=== PATIENT | female | born 1965 | race Caucasian/White ===

== ENCOUNTER 2017-05-23 22:00 | Inpatient (IN) | payer MEDICARE, MEDICAID ==
[~2017-05-23] VITALS: Ht 157.5 cm; Wt 66.0 kg
[2017-05-23] MEDS ORDERED: LEVO88TA4 PO (22:13)
[2017-05-23] MEDS ORDERED: METH500T7 PO (22:13)
[2017-05-23] MEDS ORDERED: QUET25TA PO (22:13)
[2017-05-23] MEDS ORDERED: FLUO10CA7 PO (22:13)
[2017-05-23] MEDS ORDERED: OXYC5CAP2 PO (22:13)
[2017-05-23] MEDS ORDERED: OMEP10CA4 PO (22:13)
[2017-05-23] MEDS ORDERED: TOPI15CA PO (22:13)
[2017-05-23] MEDS ORDERED: DIAZ2TAB3 PO (22:13)
[2017-05-23] MEDS ORDERED: ONDANSETRON 2MG/ML, 2ML IVPush ONE (22:30)
[2017-05-23] MEDS ORDERED: SODIUM CHLORIDE 0.9% 1,000ML IVBOLUS ONE (22:30)
[2017-05-23] MEDS ORDERED: ONDANSETRON 2MG/ML, 2ML ONE (22:34)
[2017-05-23] MEDS ORDERED: NALOXONE 0.4 MG/ML, 1ML ONE ×3 (22:34→23:34)
[2017-05-23 22:42] LABS: HEMATOCRIT 33.2 % (34.6-47.8); HEMOGLOBIN 10.9 g/dL (11.7-16.4)
[2017-05-23 22:56] LABS: ASPARTATE AMINO TRANSFERASE 15 U/L (15-37); BLOOD UREA NITROGEN 16 mg/dL (7-18)
[2017-05-23 23:06] LABS: ACETAMINOPHEN 17 mcg/mL (10-30)
[2017-05-23] MEDS: NALOXONE 0.4 MG/ML, 1ML IVPush PRN ×2 (23:20→23:47)
[2017-05-23 23:31] LABS: DAU SCREEN DISCLAIMER
[2017-05-24] MEDS ORDERED: NALOXONE 4 MG in SODIUM CHLORIDE 0.9% 1,000 ML IV SCH ×2 (00:30→01:30)
[2017-05-24] MEDS ORDERED: SODIUM CHLORIDE 0.9% 1,000ML IVBOLUS ONE (01:00)
[2017-05-24] MEDS ORDERED: ONDANSETRON 2MG/ML, 2ML IVPush PRN (01:30)
[2017-05-24] MEDS: NS + 20MEQ KCL 1,000 ML IV SCH ×2 (02:54→09:16)
[2017-05-24] MEDS: ENOXAPARIN 40 MG/0.4 ML SQ SCH (02:55)
[2017-05-24 04:00] VITALS: BP 101/70
[2017-05-24 04:46] LABS: HEMATOCRIT 33.2 % (34.6-47.8); HEMOGLOBIN 10.9 g/dL (11.7-16.4); WHITE BLOOD COUNT 4.1 x10^3/uL (3.4-10)
[2017-05-24 04:58] LABS: ASPARTATE AMINO TRANSFERASE 10 U/L (15-37); BLOOD UREA NITROGEN 13 mg/dL (7-18)
[2017-05-24] MEDS ORDERED: LEVOTHYROXINE 100 MCG INJ IVPush SCH (09:00)
[2017-05-24] MEDS ORDERED: NALOXONE 0.4 MG/ML, 1ML IVPush PRN (11:30)
[2017-05-24 20:00] VITALS: BP 122/74
[2017-05-24 21:15] VITALS: BP 127/83
[2017-05-25 02:44] VITALS: BP 118/76
[2017-05-25] MEDS: ENOXAPARIN 40 MG/0.4 ML SQ SCH (05:31)
[2017-05-25] MEDS ORDERED: LEVOTHYROXINE 88 MCG TABLET PO SCH (06:00)
[2017-05-25 06:58] VITALS: BP 137/89
[2017-05-25 12:51] VITALS: BP 132/85
[2017-05-25] MEDS ORDERED: NALO0.4D2 IM (14:39)
[2017-05-25] MEDS ORDERED: PREGABALIN 150 MG CAPSULE PO ONE (15:00)
== END 2017-05-25 15:45 | disposition home or self-care (01) | DRG 917 ==
LOC: ED 23:59 → OBSVTOIN 05-24 00:13 → EDIP 05-24 00:13 → CCU 05-24 02:11 → 4EST 05-24 21:08
PROVIDERS: ADMIT Internal Medicine; ATTEND Internal Medicine
DX: T40.601A Poisoning by unspecified narcotics, accidental (unintentional), initial encounter (principal); J96.01 Acute respiratory failure with hypoxia; G92 Toxic encephalopathy; E87.6 Hypokalemia; E03.9 Hypothyroidism, unspecified; D64.9 Anemia, unspecified; F31.9 Bipolar disorder, unspecified; G62.9 Polyneuropathy, unspecified; R33.9 Retention of urine, unspecified; Z86.73 Personal history of transient ischemic attack (TIA), and cerebral infarction without residual deficits; Z99.3 Dependence on wheelchair; Y92.89 Other specified places as the place of occurrence of the external cause
CPT/HCPCS: 36415; 70450; 80053; 80307; 80329; 82962; 83735; 84443; 84703; 85025; 87081; 87147; 96361; 96374; 96375; J1650; J2310; J2405; J3480; G0480; J7030

== ENCOUNTER 2017-05-28 14:50 | Inpatient (IN) | payer MEDICARE, MEDICAID ==
[~2017-05-28] VITALS: Ht 160 cm; Wt 63.1 kg
[~2017-05-28 14:50] MED LIST: DIAZ2TAB3 PO; FLUO10CA7 PO; LEVO88TA4 PO; METH500T7 PO; NALO0.4D2 IM; OMEP10CA4 PO; OXYC5CAP2 PO; QUET25TA PO; TOPI15CA PO
[2017-05-28] MEDS ORDERED: SODIUM CHLORIDE 0.9% 1,000 ML IV ONE (15:03)
[2017-05-28] MEDS ORDERED: NALOXONE 0.4 MG/ML, 1ML ONE (15:11)
[2017-05-28] MEDS ORDERED: NALOXONE 0.4 MG/ML, 1ML IVPush ONE (15:30)
[2017-05-28] MEDS ORDERED: SODIUM CHLORIDE FLUSH 10ML SYR IVF ONE (15:30)
[2017-05-28] MEDS ORDERED: SODIUM CHLORIDE 0.9% 1,000ML IVBOLUS ONE (15:30)
[2017-05-28 15:50] LABS: BLOOD UREA NITROGEN 17 mg/dL (7-18); HEMATOCRIT 32.9 % (34.6-47.8); HEMOGLOBIN 10.9 g/dL (11.7-16.4); WHITE BLOOD COUNT 9.1 x10^3/uL (3.4-10)
[2017-05-28 15:55] LABS: ACETAMINOPHEN 18 mcg/mL (10-30); ASPARTATE AMINO TRANSFERASE 118 U/L (15-37)
[2017-05-28] MEDS ORDERED: NALOXONE 1 MG/ML, 2ML IVPush ONE (16:00)
[2017-05-28] MEDS ORDERED: NALOXONE 1 MG/ML, 2ML ONE (16:16)
[2017-05-28 16:34] LABS: DAU SCREEN DISCLAIMER
[2017-05-28 16:38] LABS: PATH.CAST-FLAG NOT PRESENT; SPERM-FLAG NOT PRESENT; SRC-FLAG NOT PRESENT; XTAL-FLAG NOT PRESENT; YLC-FLAG NOT PRESENT
[2017-05-28] MEDS ORDERED: CEFTRIAXONE PMX 1GM/50ML 50 ML IV ONE (17:00)
[2017-05-28] MEDS ORDERED: CEFTRIAXONE PMX 1GM/50ML 50 ML ONE (17:19)
[2017-05-28] MEDS ORDERED: MORP-52 PO (17:38)
[2017-05-28] MEDS ORDERED: POTASSIUM CHLORIDE 40 MEQ in SODIUM CHLORIDE 0.9% 500 ML IV ONE (18:00)
[2017-05-28 19:29] VITALS: BP 121/79
[2017-05-28] MEDS: HEPARIN 5,000 UNITS/ML, 1ML SQ SCH (23:42)
[2017-05-29 00:10] VITALS: BP 121/79
[2017-05-29 02:30] VITALS: BP 104/69
[2017-05-29 04:39] LABS: BLOOD UREA NITROGEN 14 mg/dL (7-18)
[2017-05-29 04:50] LABS: HEMATOCRIT 31.5 % (34.6-47.8); HEMOGLOBIN 10.3 g/dL (11.7-16.4); WHITE BLOOD COUNT 5.7 x10^3/uL (3.4-10)
[2017-05-29] MEDS ORDERED: CEFTRIAXONE PMX 2GM/50ML 50 ML IV SCH (05:00)
[2017-05-29 07:51] VITALS: BP 117/79
[2017-05-29] MEDS: LEVOTHYROXINE 88 MCG TABLET PO SCH (09:08)
[2017-05-29] MEDS: HEPARIN 5,000 UNITS/ML, 1ML SQ SCH ×3 (09:08→22:16)
[2017-05-29] MEDS: CEFTRIAXONE PMX 1GM/50ML 50 ML IV SCH (10:39)
[2017-05-29] MEDS: DEXTROSE 5% 1,000 ML IV SCH ×3 (10:39→23:18)
[2017-05-29] MEDS: POTASSIUM CHLORIDE 20 MEQ TAB.ER.PRT PO SCH ×2 (10:40→16:53)
[2017-05-29 12:38] VITALS: BP 114/74
[2017-05-29 20:00] VITALS: BP 131/88
[2017-05-29] MEDS: PREGABALIN 150 MG CAPSULE PO SCH (22:15)
[2017-05-30 02:00] VITALS: BP 118/82
[2017-05-30 06:02] LABS: ASPARTATE AMINO TRANSFERASE 53 U/L (15-37); BLOOD UREA NITROGEN 10 mg/dL (7-18)
[2017-05-30] MEDS: DEXTROSE 5% 1,000 ML IV SCH ×3 (06:03→20:56)
[2017-05-30] MEDS: HEPARIN 5,000 UNITS/ML, 1ML SQ SCH ×2 (06:13→15:29)
[2017-05-30 06:42] VITALS: BP 125/85
[2017-05-30] MEDS: PREGABALIN 150 MG CAPSULE PO SCH (08:46)
[2017-05-30] MEDS: LEVOTHYROXINE 88 MCG TABLET PO SCH (08:46)
[2017-05-30] MEDS ORDERED: TOPIRAMATE 15 MG PO SCH (09:00)
[2017-05-30] MEDS ORDERED: [UNRECOGNIZED DRUG - REMARK] MC SCH (09:17)
[2017-05-30] MEDS: FLUOXETINE 10 MG CAP PO SCH (10:53)
[2017-05-30] MEDS: CEFTRIAXONE PMX 1GM/50ML 50 ML IV SCH (10:53)
[2017-05-30 12:42] VITALS: BP 120/77
[2017-05-30 20:00] VITALS: BP 130/84
[2017-05-31] MEDS: HEPARIN 5,000 UNITS/ML, 1ML SQ SCH ×2 (00:40→07:45)
[2017-05-31 02:00] VITALS: BP 106/72
[2017-05-31] MEDS: LEVOTHYROXINE 88 MCG TABLET PO SCH (07:45)
[2017-05-31] MEDS: FLUOXETINE 10 MG CAP PO SCH (07:45)
[2017-05-31] MEDS: PREGABALIN 150 MG CAPSULE PO SCH (07:45)
[2017-05-31 08:06] VITALS: BP 120/82
[2017-05-31] MEDS ORDERED: TOPIRAMATE 25 MG TABLET PO SCH (09:00)
[2017-05-31] MEDS ORDERED: MORP30TA3 PO (09:39)
[2017-05-31] MEDS ORDERED: IBUP-1221 PO (09:46)
[2017-05-31 13:25] VITALS: BP 120/80
== END 2017-05-31 15:43 | disposition home or self-care (01) | DRG 917 ==
LOC: ED 17:13 → EDIP 17:18 → ED 17:30 → 4EST 18:42
PROVIDERS: ATTEND Hospitalist
PROC: 0T9B70Z Drainage of Bladder with Drainage Device, Via Natural or Artificial Opening (ICD-10-PCS; principal; 2017-05-28)
DX: T40.601A Poisoning by unspecified narcotics, accidental (unintentional), initial encounter (principal); G92 Toxic encephalopathy; E43 Unspecified severe protein-calorie malnutrition; L89.312 Pressure ulcer of right buttock, stage 2; E87.0 Hyperosmolality and hypernatremia; E86.0 Dehydration; N39.0 Urinary tract infection, site not specified; Z88.6 Allergy status to analgesic agent; Z88.8 Allergy status to other drugs, medicaments and biological substances; Z68.24 Body mass index [BMI] 24.0-24.9, adult; B96.20 Unspecified Escherichia coli [E. coli] as the cause of diseases classified elsewhere; D63.8 Anemia in other chronic diseases classified elsewhere; E03.9 Hypothyroidism, unspecified; E87.6 Hypokalemia; F31.9 Bipolar disorder, unspecified; G89.29 Other chronic pain; Z79.899 Other long term (current) drug therapy; Z87.820 Personal history of traumatic brain injury; Z99.3 Dependence on wheelchair
CPT/HCPCS: 36415; 80048; 80053; 80307; 80329; 81001; 83735; 84100; 85025; 87077; 87086; 87186; 93005; 93970; 96361; 96365; 96368; 96375; 96376; J0696; J1644; J2310; J3480; J7070; G0480; J7030; J7040

== ENCOUNTER 2018-02-18 04:45 | Emergency (ER) | payer MEDICARE, MEDICAID ==
[~2018-02-18] VITALS: Ht 152.4 cm; Wt 80.0 kg
[~2018-02-18 04:45] MED LIST changes: +ALPR-475 PO; +BACL20TA PO; +FUROSEMIDE PO; +IBUP-1221 PO; +IBUP-1222 PO; +METH750T2 PO; +MORP-52 PO; +MORP30TA3 PO; +OMEPRAZOLE PO; +OXYC-302 PO; +POTASSIUM PO; +QUET200T4 PO
[2018-02-18] MEDS ORDERED: OXYcodone/APAP 5/325MG TABLET ONE (05:28)
[2018-02-18] MEDS ORDERED: OXYcodone/APAP 5/325MG TABLET PO ONE (05:30)
[2018-02-18 08:14] VITALS: BP 123/76
== END 2018-02-18 09:10 | disposition home or self-care (01) ==
LOC: ED 05:52
DX: S92.514A Nondisplaced fracture of proximal phalanx of right lesser toe(s), initial encounter for closed fracture (principal); S93.402A Sprain of unspecified ligament of left ankle, initial encounter; S00.12XA Contusion of left eyelid and periocular area, initial encounter; E87.6 Hypokalemia; Z86.73 Personal history of transient ischemic attack (TIA), and cerebral infarction without residual deficits; W01.0XXA Fall on same level from slipping, tripping and stumbling without subsequent striking against object, initial encounter; Y93.89 Activity, other specified; Y92.89 Other specified places as the place of occurrence of the external cause; Y99.8 Other external cause status
CPT/HCPCS: 29515; 70486; 99284

== ENCOUNTER → 2018-05-30 | Outpatient (CLI) | payer MEDICARE, MEDICAID ==
[~2018-05-30] MED LIST changes: +FLUO40CA9 PO; +HYDR-3342 PO; +METO25TA35 PO; +OMEP-110 PO
[2018-05-30 08:13] LABS: ALBUMIN 4.3 g/dL (3.4-5.0); ANION GAP 11 mmol/L (5-15); CALCIUM 9.1 mg/dL (8.5-10.1); CHLORIDE 106 mmol/L (98-107)
[2018-05-30 08:22] LABS: ALANINE AMINOTRANSFERASE 39 U/L (12-78); ALKALINE PHOSPHATASE 141 U/L (45-117); BILIRUBIN,TOTAL 0.3 mg/dL (0.2-1.0); CHOL/HDL RATIO 2.1; CHOLESTEROL, TOTAL 214 mg/dL (140-239); CREATININE 1.35 mg/dL (0.55-1.02); FREE T4 (FREE THYROXINE) 0.86 ng/dL (0.76-1.46); HDL CHOL % 48 % (28-40); HDL CHOLESTEROL (DIRECT) 103 mg/dL (40-60); LDL CHOLESTEROL,CALCULATED 81 mg/dL (54-169); LDL/HDL RATIO 0.8 (0.5-3.0); THYROID STIMULATING HORMONE 0.897 mIU/L (0.358-3.740); TOTAL PROTEIN 8.5 g/dL (6.4-8.2); TRIGLYCERIDES 151 mg/dL (50-200); VLDL CHOLESTEROL 30 mg/dL (0-25)
[2018-05-30 08:38] LABS: MEAN PLATELET VOLUME 12.8 fL (7.4-10.4); PLATELET COUNT 281 x10^3/uL (130-400)
[2018-05-30 08:40] LABS: BASOPHILS # (AUTO) 0.02 x10^3/uL (0-0.1); BASOPHILS % (AUTO) 0 % (0-1); EOSINOPHILS # (AUTO) 0.17 x10^3/uL (0-0.4); EOSINOPHILS % (AUTO) 3 % (1-7); LYMPHOCYTES # (AUTO) 1.39 x10^3/uL (1-3.4); LYMPHOCYTES % (AUTO) 25 % (22-44); MD SCAN; MEAN CORPUSCULAR HEMOGLOBIN 30.6 pg (27.0-34.8); MEAN CORPUSCULAR HGB CONC 33.6 g/dL (32.4-35.8); MEAN CORPUSCULAR VOLUME 91.2 fL (80-100); MONOCYTES # (AUTO) 0.51 x10^3/uL (0.2-0.8); MONOCYTES % (AUTO) 9 % (2-9); NEUTROPHILS # (AUTO) 3.57 x10^3/uL (1.8-6.8); NEUTROPHILS % (AUTO) 63 % (42-75); RED BLOOD COUNT 4.46 x10^6/uL (3.82-5.3); RED CELL DISTRIBUTION WIDTH 16.5 % (9.6-15.2)
== END | disposition home or self-care (01) ==
LOC: CVU 07:19
PROVIDERS: ATTEND Internal Medicine
DX: E11.9 Type 2 diabetes mellitus without complications (principal); R20.9 Unspecified disturbances of skin sensation; E55.9 Vitamin D deficiency, unspecified; E03.9 Hypothyroidism, unspecified; K21.9 Gastro-esophageal reflux disease without esophagitis; R60.9 Edema, unspecified; G82.20 Paraplegia, unspecified; I25.2 Old myocardial infarction; I73.9 Peripheral vascular disease, unspecified; Z87.828 Personal history of other (healed) physical injury and trauma; Z86.73 Personal history of transient ischemic attack (TIA), and cerebral infarction without residual deficits
CPT/HCPCS: 36415; 80053; 80061; 82306; 84439; 84443; 84481; 85025; 86376; 93922; 93925

== ENCOUNTER 2018-06-16 01:25 | Emergency (ER) | payer MEDICARE, MEDICAID ==
[~2018-06-16] VITALS: Ht 152.4 cm; Wt 70.0 kg
[~2018-06-16 01:25] MED LIST changes: -FLUO40CA9 PO; -HYDR-3342 PO; -METO25TA35 PO; -OMEP-110 PO
[2018-06-16] MEDS ORDERED: HYDR-3342 PO (01:46)
[2018-06-16] MEDS ORDERED: METO25TA35 PO (01:46)
[2018-06-16] MEDS ORDERED: OMEP-110 PO (01:46)
[2018-06-16] MEDS ORDERED: FLUO40CA9 PO (01:46)
[2018-06-16 02:59] LABS: ALBUMIN 3.5 g/dL (3.4-5.0); ANION GAP 8 mmol/L (5-15); CALCIUM 8.7 mg/dL (8.5-10.1); CHLORIDE 105 mmol/L (98-107)
[2018-06-16 03:02] LABS: ALANINE AMINOTRANSFERASE 32 U/L (12-78); ALKALINE PHOSPHATASE 142 U/L (45-117); BILIRUBIN,TOTAL 0.3 mg/dL (0.2-1.0); TOTAL PROTEIN 7.5 g/dL (6.4-8.2)
[2018-06-16 03:04] LABS: BASOPHILS # (AUTO) 0.02 x10^3/uL (0-0.1); BASOPHILS % (AUTO) 0 % (0-1); EOSINOPHILS # (AUTO) 0.24 x10^3/uL (0-0.4); EOSINOPHILS % (AUTO) 4 % (1-7); LYMPHOCYTES # (AUTO) 1.51 x10^3/uL (1-3.4); LYMPHOCYTES % (AUTO) 25 % (22-44); MD SCAN; MEAN CORPUSCULAR HEMOGLOBIN 31.5 pg (27.0-34.8); MEAN CORPUSCULAR HGB CONC 34.3 g/dL (32.4-35.8); MEAN CORPUSCULAR VOLUME 91.9 fL (80-100); MEAN PLATELET VOLUME 11.8 fL (7.4-10.4); MONOCYTES # (AUTO) 0.53 x10^3/uL (0.2-0.8); MONOCYTES % (AUTO) 9 % (2-9); NEUTROPHILS # (AUTO) 3.64 x10^3/uL (1.8-6.8); NEUTROPHILS % (AUTO) 61 % (42-75); PLATELET COUNT 219 x10^3/uL (130-400); RED BLOOD COUNT 4.18 x10^6/uL (3.82-5.3); RED CELL DISTRIBUTION WIDTH 16.5 % (9.6-15.2)
[2018-06-16] MEDS ORDERED: POTASSIUM CHLORIDE 20 MEQ TAB.ER.PRT PO ONE (04:00)
[2018-06-16] MEDS ORDERED: CEFTRIAXONE 1,000 MG in SODIUM CHLORIDE 0.9% 50 ML IV ONE (04:00)
[2018-06-16] MEDS ORDERED: MORPHINE SULFATE 4 MG/ML, 1ML IVPush PRN (04:00)
[2018-06-16] MEDS ORDERED: CEFTRIAXONE PMX 1GM/50ML 0 ML ONE (04:06)
[2018-06-16] MEDS ORDERED: POTASSIUM CHLORIDE 20 MEQ TAB.ER.PRT ONE ×2 (04:06→04:14)
[2018-06-16] MEDS ORDERED: CEFTRIAXONE PMX 1GM/50ML 50 ML ONE ×2 (04:08→04:15)
[2018-06-16] MEDS ORDERED: MORPHINE SULFATE 4 MG/ML, 1ML ONE (04:15)
[2018-06-16 04:57] VITALS: BP 131/78
== END 2018-06-16 05:00 | disposition home or self-care (01) ==
LOC: ED 04:54
DX: L03.116 Cellulitis of left lower limb (principal); F31.9 Bipolar disorder, unspecified; Z86.73 Personal history of transient ischemic attack (TIA), and cerebral infarction without residual deficits
CPT/HCPCS: 36415; 73630; 80053; 85025; 93971; 96365; 96375; 99285; J0696

== ENCOUNTER → 2018-06-19 | Outpatient (CLI) | payer MEDICARE, MEDICAID ==
[~2018-06-19] MED LIST changes: +FLUO40CA9 PO; +HYDR-3342 PO; +METO25TA35 PO; +OMEP-110 PO
[2018-06-19 15:44] LABS: ALANINE AMINOTRANSFERASE 23 U/L (12-78); ALBUMIN 3.7 g/dL (3.4-5.0); ANION GAP 12 mmol/L (5-15); CALCIUM 8.2 mg/dL (8.5-10.1); CHLORIDE 108 mmol/L (98-107); CREATININE 1.37 mg/dL (0.55-1.02); IRON LEVEL 49 mcg/dL (50-170)
[2018-06-19 15:46] LABS: % IRON SATURATION 13 % (20-55); ALKALINE PHOSPHATASE 111 U/L (45-117); BILIRUBIN,TOTAL 0.2 mg/dL (0.2-1.0); TOTAL IRON BINDING CAPACITY 374 mcg/dL (250-450); TRANSFERRIN 329 mg/dL (200-360)
== END | disposition home or self-care (01) ==
LOC: LAB 15:09
PROVIDERS: ATTEND Physician Assistant
DX: Z00.01 Encounter for general adult medical examination with abnormal findings (principal); Z13.220 Encounter for screening for lipoid disorders; Z12.11 Encounter for screening for malignant neoplasm of colon; Z12.4 Encounter for screening for malignant neoplasm of cervix; Z12.31 Encounter for screening mammogram for malignant neoplasm of breast; E78.5 Hyperlipidemia, unspecified; E03.9 Hypothyroidism, unspecified; F32.9 Major depressive disorder, single episode, unspecified; I21.9 Acute myocardial infarction, unspecified; I63.8 Other cerebral infarction; K21.9 Gastro-esophageal reflux disease without esophagitis; B18.2 Chronic viral hepatitis C; D64.9 Anemia, unspecified; E55.9 Vitamin D deficiency, unspecified; S34.109D Unspecified injury to unspecified level of lumbar spinal cord, subsequent encounter; E87.6 Hypokalemia; R73.01 Impaired fasting glucose; R79.9 Abnormal finding of blood chemistry, unspecified; Z95.0 Presence of cardiac pacemaker
CPT/HCPCS: 36415; 80053; 80074; 82105; 82390; 82728; 83540; 83550; 84466

== ENCOUNTER 2018-06-24 20:05 | Inpatient (IN) | payer MEDICARE, MEDICAID ==
[~2018-06-24] VITALS: Ht 152.4 cm; Wt 76.5 kg
[2018-06-24] MEDS ORDERED: MORPHINE SULFATE 4 MG/ML, 1ML ONE ×2 (21:00→23:05)
[2018-06-24] MEDS ORDERED: SODIUM CHLORIDE FLUSH 10ML SYR IVF ONE (21:00)
[2018-06-24] MEDS: MORPHINE SULFATE 4 MG/ML, 1ML IVPush PRN ×2 (21:17→23:08)
[2018-06-24 21:18] LABS: ALANINE AMINOTRANSFERASE 22 U/L (12-78); ALBUMIN 3.9 g/dL (3.4-5.0); ANION GAP 16 mmol/L (5-15); CALCIUM 8.5 mg/dL (8.5-10.1); CHLORIDE 104 mmol/L (98-107); CREATININE 1.98 mg/dL (0.55-1.02)
[2018-06-24 21:20] LABS: ALKALINE PHOSPHATASE 121 U/L (45-117); BILIRUBIN,TOTAL 0.3 mg/dL (0.2-1.0); TOTAL PROTEIN 7.8 g/dL (6.4-8.2)
[2018-06-24 21:27] LABS: MEAN CORPUSCULAR HEMOGLOBIN 31.3 pg (27.0-34.8); MEAN CORPUSCULAR VOLUME 92.1 fL (80-100); RED BLOOD COUNT 4.22 x10^6/uL (3.82-5.3); RED CELL DISTRIBUTION WIDTH 16.1 % (9.6-15.2)
[2018-06-24 21:28] LABS: MD YES; MEAN PLATELET VOLUME 12.5 fL (7.4-10.4); PLATELET COUNT 245 x10^3/uL (130-400)
[2018-06-24 21:31] LABS: ANISOCYTOSIS 1+; EOS#(MANUAL) 0.05 x10^3/uL (0.0-0.4); EOS% (MANUAL) 1 % (1-7); LYMPH#(MANUAL) 1.72 x10^3/uL (1-3.4); LYMPHS% (MANUAL) 35 % (22-44); MONOS#(MANUAL) 0.44 x10^3/uL (0.3-2.7); MONOS% (MANUAL) 9 % (2-9); SEGS% (MANUAL) 55 % (42-75)
[2018-06-24 21:32] LABS: <PLATELET ESTIMATE> ADEQUATE; LARGE PLATELETS 1+
[2018-06-24] MEDS ORDERED: CLINDAMYCIN PMX 600MG/50ML 50 ML IV ONE (22:30)
[2018-06-24] MEDS ORDERED: CLINDAMYCIN PMX 600MG/50ML 50 ML ONE (22:42)
[2018-06-24] MEDS ORDERED: SODIUM CHLORIDE 0.9% 1,000 ML IV ONE (23:24)
[2018-06-24] MEDS ORDERED: MORPHINE SULFATE 4 MG/ML, 1ML IVPush PRN (23:30)
[2018-06-24] MEDS ORDERED: CEPH-376 PO (23:39)
[2018-06-25] MEDS ORDERED: ONDANSETRON ODT 4 MG PO PRN (00:30)
[2018-06-25] MEDS ORDERED: ENOXAPARIN 40 MG/0.4 ML SQ SCH (00:30)
[2018-06-25] MEDS ORDERED: BISACODYL 10 MG SUPP PR PRN (00:30)
[2018-06-25] MEDS ORDERED: D5%-0.45NACL+KCL 20MEQ 1,000 ML IV SCH (00:30)
[2018-06-25] MEDS ORDERED: hydrALAzine 20 MG/ML, 1ML IVPush PRN (00:30)
[2018-06-25 00:35] VITALS: BP 127/79
[2018-06-25 01:17] VITALS: BP 127/79
[2018-06-25] MEDS: TEMAZEPAM 15 MG CAPSULE PO PRN ×2 (01:53→23:09)
[2018-06-25 02:00] VITALS: BP 127/79
[2018-06-25] MEDS: morphine SULFATE 10 MG/ML, 1ML IVPush PRN ×5 (02:54→21:23)
[2018-06-25] MEDS: LACTOBACILLUS CHEW TABLET PO SCH ×4 (06:45→20:53)
[2018-06-25 06:51] VITALS: BP 121/86
[2018-06-25] MEDS ORDERED: CLINDAMYCIN PMX 600MG/50ML 50 ML IV SCH (07:00)
[2018-06-25] MEDS: FLUOXETINE HCL 20 MG CAPSULE PO SCH (08:11)
[2018-06-25] MEDS: OMEPRAZOLE 20 MG CAPSULE.DR PO SCH (08:11)
[2018-06-25] MEDS: METHOCARBAMOL 750 MG TABLET PO SCH (08:11)
[2018-06-25] MEDS: LEVOTHYROXINE 75 MCG TABLET PO SCH (08:12)
[2018-06-25] MEDS: METOPROLOL SUCCINATE 25 MG TAB.ER.24H PO SCH (08:12)
[2018-06-25] MEDS: CEFTRIAXONE 2 GM in SODIUM CHLORIDE 0.9% 50 ML IV SCH (09:59)
[2018-06-25] MEDS: SODIUM CHLORIDE 0.9% 1,000 ML IV SCH ×2 (09:59→18:03)
[2018-06-25 10:08] LABS: ALBUMIN 4.1 g/dL (3.4-5.0); ANION GAP 14 mmol/L (5-15); CALCIUM 8.8 mg/dL (8.5-10.1); CHLORIDE 105 mmol/L (98-107); CREATININE 1.61 mg/dL (0.55-1.02)
[2018-06-25 12:15] VITALS: BP 115/82
[2018-06-25 15:31] LABS: CLOSTRIDIUM DIFFICILE ANTIGEN NEGATIVE; CLOSTRIDIUM DIFFICILE TOXIN NEGATIVE (Negative)
[2018-06-25] MEDS ORDERED: LOPERAMIDE 2 MG CAPSULE PO ONE (16:00)
[2018-06-25] MEDS: LOPERAMIDE 2 MG CAPSULE PO PRN (20:53)
[2018-06-25 21:30] VITALS: BP 103/62
[2018-06-26] MEDS ORDERED: ENOXAPARIN 30 MG/0.3 ML SQ SCH (01:00)
[2018-06-26] MEDS: morphine SULFATE 10 MG/ML, 1ML IVPush PRN ×4 (01:59→20:24)
[2018-06-26 02:02] VITALS: BP 101/56
[2018-06-26] MEDS: LACTOBACILLUS CHEW TABLET PO SCH ×4 (05:23→20:19)
[2018-06-26] MEDS: SODIUM CHLORIDE 0.9% 1,000 ML IV SCH (05:23)
[2018-06-26 06:06] LABS: ANION GAP 13 mmol/L (5-15); CALCIUM 8.2 mg/dL (8.5-10.1); CHLORIDE 112 mmol/L (98-107)
[2018-06-26 06:07] LABS: CREATININE 0.85 mg/dL (0.55-1.02)
[2018-06-26 06:21] LABS: MEAN CORPUSCULAR HGB CONC 33.8 g/dL (32.4-35.8); MEAN CORPUSCULAR VOLUME 91.8 fL (80-100); RED BLOOD COUNT 3.83 x10^6/uL (3.82-5.3); RED CELL DISTRIBUTION WIDTH 15.3 % (9.6-15.2)
[2018-06-26 06:48] VITALS: BP 96/62
[2018-06-26 06:54] LABS: PLATELET COUNT 166 x10^3/uL (130-400)
[2018-06-26 06:55] LABS: BASOPHILS % (AUTO) 0 % (0-1); EOSINOPHILS # (AUTO) 0.03 x10^3/uL (0-0.4); EOSINOPHILS % (AUTO) 1 % (1-7); LYMPHOCYTES # (AUTO) 0.45 x10^3/uL (1-3.4); LYMPHOCYTES % (AUTO) 11 % (22-44); MD SCAN; MONOCYTES # (AUTO) 0.34 x10^3/uL (0.2-0.8); MONOCYTES % (AUTO) 9 % (2-9); NEUTROPHILS # (AUTO) 3.19 x10^3/uL (1.8-6.8); NEUTROPHILS % (AUTO) 79 % (42-75)
[2018-06-26] MEDS: LOPERAMIDE 2 MG CAPSULE PO PRN ×2 (07:59→19:27)
[2018-06-26] MEDS: OMEPRAZOLE 20 MG CAPSULE.DR PO SCH (09:50)
[2018-06-26] MEDS: FLUOXETINE HCL 20 MG CAPSULE PO SCH (09:55)
[2018-06-26] MEDS: METOPROLOL SUCCINATE 25 MG TAB.ER.24H PO SCH (09:59)
[2018-06-26] MEDS: CEFTRIAXONE 2 GM in SODIUM CHLORIDE 0.9% 50 ML IV SCH (10:00)
[2018-06-26] MEDS: METHOCARBAMOL 750 MG TABLET PO SCH (10:00)
[2018-06-26] MEDS: LEVOTHYROXINE 75 MCG TABLET PO SCH (10:00)
[2018-06-26 10:02] VITALS: BP 103/64
[2018-06-26] MEDS ORDERED: CEFTRIAXONE 1,000 MG in SODIUM CHLORIDE 0.9% 50 ML IV SCH (10:30)
[2018-06-26] MEDS: POTASSIUM CHLORIDE 20 MEQ TAB.ER.PRT PO SCH ×2 (11:16→16:28)
[2018-06-26] MEDS: SODIUM BICARBONATE 8.4% 100 MEQ in DEXTROSE 5% 1,000 ML IV SCH (11:16)
[2018-06-26 12:49] VITALS: BP 101/68
[2018-06-26 19:09] VITALS: BP 98/62
[2018-06-26] MEDS: TEMAZEPAM 15 MG CAPSULE PO PRN (20:19)
[2018-06-26] MEDS ORDERED: ENOXAPARIN 40 MG/0.4 ML SQ SCH (23:00)
[2018-06-27] MEDS: SODIUM BICARBONATE 8.4% 100 MEQ in DEXTROSE 5% 1,000 ML IV SCH (00:22)
[2018-06-27 01:23] VITALS: BP 121/70
[2018-06-27] MEDS: morphine SULFATE 10 MG/ML, 1ML IVPush PRN (05:26)
[2018-06-27] MEDS: LACTOBACILLUS CHEW TABLET PO SCH (05:26)
[2018-06-27 05:44] LABS: ALBUMIN 2.7 g/dL (3.4-5.0); ANION GAP 10 mmol/L (5-15); CALCIUM 8.2 mg/dL (8.5-10.1); CHLORIDE 110 mmol/L (98-107); CREATININE 0.67 mg/dL (0.55-1.02)
[2018-06-27 07:01] VITALS: BP 111/76
[2018-06-27] MEDS: METHOCARBAMOL 750 MG TABLET PO SCH (08:36)
[2018-06-27] MEDS: OMEPRAZOLE 20 MG CAPSULE.DR PO SCH (08:37)
[2018-06-27] MEDS: LOPERAMIDE 2 MG CAPSULE PO PRN (08:37)
[2018-06-27] MEDS: FLUOXETINE HCL 20 MG CAPSULE PO SCH (08:37)
[2018-06-27] MEDS: POTASSIUM CHLORIDE 20 MEQ TAB.ER.PRT PO SCH (08:37)
[2018-06-27] MEDS: METOPROLOL SUCCINATE 25 MG TAB.ER.24H PO SCH (08:37)
[2018-06-27] MEDS: LEVOTHYROXINE 75 MCG TABLET PO SCH (08:37)
[2018-06-27] MEDS ORDERED: CEFDINIR 300 MG CAPSULE PO SCH (09:00)
[2018-06-27] MEDS ORDERED: NEUTRA PHOS K 250 MG TABLET PO SCH (09:00)
[2018-06-27] MEDS ORDERED: SODIUM BICARBONATE 650 MG TABLET PO SCH (09:00)
== END 2018-06-27 09:33 | disposition left against medical advice (07) | DRG 682 ==
LOC: ED 21:44 → EDIP 23:24 → 3NE 06-25 00:22
PROVIDERS: ADMIT Internal Medicine; ATTEND Internal Medicine
DX: N17.0 Acute kidney failure with tubular necrosis (principal); R53.2 Functional quadriplegia; L03.116 Cellulitis of left lower limb; E87.2 Acidosis; L97.509 Non-pressure chronic ulcer of other part of unspecified foot with unspecified severity; Z99.3 Dependence on wheelchair; G62.9 Polyneuropathy, unspecified; F31.9 Bipolar disorder, unspecified; Z53.21 Procedure and treatment not carried out due to patient leaving prior to being seen by health care provider; E03.9 Hypothyroidism, unspecified; E87.6 Hypokalemia; I25.2 Old myocardial infarction; M85.80 Other specified disorders of bone density and structure, unspecified site; Z86.73 Personal history of transient ischemic attack (TIA), and cerebral infarction without residual deficits; Z90.710 Acquired absence of both cervix and uterus
CPT/HCPCS: 36415; 80048; 80053; 82040; 83735; 84100; 85025; 87324; 96365; 96375; 96376; 99285; G0378; J0696; J1650; J7070; J2270; J3480; J7030

== ENCOUNTER → 2018-11-21 | Outpatient (CLI) | payer MEDICARE, MEDICAID ==
[~2018-11-21] MED LIST changes: +BACL-19 PO; +CEPH-376 PO; +CLOP75TA52 PO; +FURO20TA3 PO; +HYDR25TA11 PO; +POTA10CA PO; +PREG150C PO; +QUET400T PO; +TOPI100T8 PO
[2018-11-21 14:01] LABS: MEAN CORPUSCULAR HEMOGLOBIN 29.8 pg (27.0-34.8); MEAN CORPUSCULAR HGB CONC 33.2 g/dL (32.4-35.8); MEAN CORPUSCULAR VOLUME 89.6 fL (80-100); MEAN PLATELET VOLUME 11.6 fL (7.4-10.4); PLATELET COUNT 243 x10^3/uL (130-400)
[2018-11-21 14:03] LABS: MICROSCOPIC NOT IND
[2018-11-21 14:08] LABS: ALBUMIN 3.7 g/dL (3.4-5.0); ANION GAP 8 mmol/L (5-15); CALCIUM 8.9 mg/dL (8.5-10.1); CHLORIDE 106 mmol/L (98-107); CULTURE INDICATED? NO
[2018-11-21 14:16] LABS: MD SCAN
[2018-11-21 14:21] LABS: % IRON SATURATION 26 % (20-55); ALANINE AMINOTRANSFERASE 26 U/L (12-78); ALKALINE PHOSPHATASE 145 U/L (45-117); BILIRUBIN,TOTAL 0.4 mg/dL (0.2-1.0); CHOL/HDL RATIO 2.2; CHOLESTEROL, TOTAL 216 mg/dL (140-239); CREATININE 1.15 mg/dL (0.55-1.02); HDL CHOL % 45 % (28-40); HDL CHOLESTEROL (DIRECT) 97 mg/dL (40-60); IRON LEVEL 84 mcg/dL (50-170); LDL CHOLESTEROL,CALCULATED 96 mg/dL (54-169); THYROID STIMULATING HORMONE 0.754 mIU/L (0.358-3.740); TOTAL IRON BINDING CAPACITY 326 mcg/dL (250-450); TOTAL PROTEIN 7.2 g/dL (6.4-8.2); TRANSFERRIN 258 mg/dL (200-360); TRIGLYCERIDES 117 mg/dL (50-200); VLDL CHOLESTEROL 23 mg/dL (0-25)
[2018-11-21 14:32] LABS: HEMOGLOBIN A1C 5.9 % (4.2-6.3)
== END | disposition home or self-care (01) ==
LOC: LAB 13:25
PROVIDERS: ATTEND Physician Assistant
DX: E03.9 Hypothyroidism, unspecified (principal); R01.1 Cardiac murmur, unspecified; I21.9 Acute myocardial infarction, unspecified; I63.89 Other cerebral infarction; K21.9 Gastro-esophageal reflux disease without esophagitis; R60.9 Edema, unspecified; R20.9 Unspecified disturbances of skin sensation; G47.09 Other insomnia; D64.9 Anemia, unspecified; E55.9 Vitamin D deficiency, unspecified; M54.5 Low back pain; E87.6 Hypokalemia; R73.01 Impaired fasting glucose; E78.5 Hyperlipidemia, unspecified; R79.9 Abnormal finding of blood chemistry, unspecified; N28.9 Disorder of kidney and ureter, unspecified; B18.2 Chronic viral hepatitis C; L03.90 Cellulitis, unspecified; D50.9 Iron deficiency anemia, unspecified; I63.9 Cerebral infarction, unspecified; M79.671 Pain in right foot; I10 Essential (primary) hypertension; F32.9 Major depressive disorder, single episode, unspecified
CPT/HCPCS: 36415; 80053; 80061; 81003; 82728; 83036; 83540; 83550; 84443; 84466; 85025

== ENCOUNTER 2018-11-30 12:25 | Emergency (ER) | payer MEDICARE, MEDICAID ==
[~2018-11-30] VITALS: Ht 152.4 cm; Wt 68.0 kg
[~2018-11-30 12:25] MED LIST changes: -QUET25TA PO; +QUET25TA7 PO
--- NOTE | 2018-11-30 13:17 | NUR ---
CALLED FOR ROOM, NO ANSWER. PT HAS X-RAYS ORDERED.
--- NOTE | 2018-11-30 13:17 | NUR ---
PT TO ROOM FROM LOBBY
[2018-11-30 13:21] LABS: ALANINE AMINOTRANSFERASE 39 U/L (12-78); ALBUMIN 3.2 g/dL (3.4-5.0); ANION GAP 11 mmol/L (5-15); CALCIUM 8.1 mg/dL (8.5-10.1); CHLORIDE 102 mmol/L (98-107)
[2018-11-30 13:24] LABS: ALKALINE PHOSPHATASE 189 U/L (45-117); BILIRUBIN,TOTAL 0.2 mg/dL (0.2-1.0); CREATININE 1.55 mg/dL (0.55-1.02); TOTAL PROTEIN 7.1 g/dL (6.4-8.2)
[2018-11-30 13:25] LABS: MEAN CORPUSCULAR HEMOGLOBIN 29.9 pg (27.0-34.8); MEAN CORPUSCULAR HGB CONC 33.6 g/dL (32.4-35.8); MEAN PLATELET VOLUME 12.3 fL (7.4-10.4); PLATELET COUNT 225 x10^3/uL (130-400); RED BLOOD COUNT 4.48 x10^6/uL (3.82-5.3)
--- NOTE | 2018-11-30 13:32 | NUR ---
PT UP TO BR IN MOTORIZED WC. INSTRUCTED ON CLEAN CATCH URINE SAMPLE.
[2018-11-30] MEDS ORDERED: CALCIUM PO (13:45)
[2018-11-30] MEDS ORDERED: ASPI-515 PO (13:45)
[2018-11-30] MEDS ORDERED: VITAMIN D PO (13:45)
[2018-11-30] MEDS ORDERED: VITAMIN C PO (13:45)
[2018-11-30 13:47] LABS: MD YES
[2018-11-30 13:48] LABS: <PLATELET ESTIMATE> ADEQUATE; <RBC MORPHOLOGY> NORMAL; BAND#(MANUAL) 1.92 x10^3/uL; BANDS%(MANUAL) 15 % (0-7); EOS#(MANUAL) 0.13 x10^3/uL (0.0-0.4); EOS% (MANUAL) 1 % (1-7); LYMPH#(MANUAL) 1.66 x10^3/uL (1-3.4); LYMPHS% (MANUAL) 13 % (22-44); MONOS#(MANUAL) 1.02 x10^3/uL (0.3-2.7); MONOS% (MANUAL) 8 % (2-9); SEG#(MANUAL) 8.06 x10^3/uL (1.8-6.8); SEGS% (MANUAL) 63 % (42-75)
[2018-11-30] MEDS ORDERED: METH750T2 PO (13:48)
[2018-11-30 13:49] LABS: GIANT PLATELETS 1+
[2018-11-30 13:57] LABS: MICROSCOPIC NOT IND
[2018-11-30 14:02] LABS: CULTURE INDICATED? NO
--- NOTE | 2018-11-30 14:17 | NUR ---
PRECEPTOR NOTE: PT SEEN AND GIVEN RESULTS/POC BY FRANKLIN MANCUSO. PT A&O, RESPS EVEN AND UNLABORED. BP AND SPO2 MONITORS IN PLACE. CALL LIGHT IN REACH. AWAITING FURTHER ORDERS AT THIS TIME.
[2018-11-30] MEDS ORDERED: POTASSIUM CHLORIDE 20 MEQ TAB.ER.PRT PO ONE (14:30)
[2018-11-30] MEDS ORDERED: MAGNESIUM CITRATE 300ML ORAL SOL PO ONE (14:30)
[2018-11-30] MEDS ORDERED: MAGNESIUM CITRATE 300ML ORAL SOL ONE (14:43)
[2018-11-30] MEDS ORDERED: POTASSIUM CHLORIDE 20 MEQ TAB.ER.PRT ONE (14:44)
--- NOTE | 2018-11-30 14:52 | NUR ---
PT MEDICATED PER ORDERS. RV'WD POC WITH HER. CALL LIGHT IN REACH.
[2018-11-30] MEDS ORDERED: ONDANSETRON ODT 4 MG ONE (15:37)
--- NOTE | 2018-11-30 15:41 | NUR ---
PT FEELING NAUSEOUS AFTER MAG CITRATE. ERP NOTIFIED, PT MEDICATED WITH ZOFRAN PER ORDERS.
[2018-11-30] MEDS ORDERED: OXYC-302 PO (15:43)
[2018-11-30] MEDS ORDERED: ONDANSETRON ODT 4 MG PO ONE (16:00)
--- NOTE | 2018-11-30 16:20 | NUR ---
PT GOT UP TO BR VIA WC, BUT NO BM. DENIES GAS. STILL FEELING NAUSEOUS. UP FOR RE-EVAL.
[2018-11-30 17:01] VITALS: BP 110/58
== END 2018-11-30 17:02 | disposition home or self-care (01) ==
LOC: ED 15:33
DX: K59.00 Constipation, unspecified (principal); E87.6 Hypokalemia; I25.2 Old myocardial infarction
CPT/HCPCS: 36415; 73630; 74021; 80053; 81003; 83690; 85025; 99284; Q0162

== ENCOUNTER 2019-02-21 18:16 | Emergency (ER) | payer MEDICARE, MEDICAID ==
[~2019-02-21] VITALS: Ht 152.4 cm; Wt 72.0 kg
[~2019-02-21 18:16] MED LIST changes: +ASPI-515 PO; +CALCIUM PO; +VITAMIN C PO; +VITAMIN D PO
--- NOTE | 2019-02-21 18:27 | NUR ---
PT BIB [facility] AFTER FALLING FROM HER SCOOTER AND HITTING HER FACE ON A SPACE HEATER. PT A&OX4. PT PLACED IN ROOM AND PLACED ON BP AND CONT. PULSE OXIMETER. ASSESSMENT COMPLETED AND AWAITING MD. CALL LIGHT IN REACH .
--- NOTE | 2019-02-21 18:51 | NUR ---
pt taken to radiology
--- NOTE | 2019-02-21 18:51 | NUR ---
report given to yvette haskins
--- NOTE | 2019-02-21 18:55 | NUR ---
Pt in radiology via gianni.
[2019-02-21] MEDS ORDERED: OXYcodone/APAP 10/325MG TABLET PO ONE (19:00)
[2019-02-21] MEDS ORDERED: OXYcodone/APAP 10/325MG TABLET ONE (19:05)
--- NOTE | 2019-02-21 19:12 | NUR ---
report given to yvette haskins
--- NOTE | 2019-02-21 19:15 | NUR ---
Pt medicated per MAR for facial pain. No acute neuro changes noted from pt's baseline. 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 A&Ox4. VSS. No further needs expressed. Call light in reach. Awaiting radiology results.
[2019-02-21 20:29] VITALS: BP 113/71
== END 2019-02-21 20:34 | disposition home or self-care (01) ==
LOC: ED 20:00
DX: S05.11XA Contusion of eyeball and orbital tissues, right eye, initial encounter (principal); I25.2 Old myocardial infarction; Z86.73 Personal history of transient ischemic attack (TIA), and cerebral infarction without residual deficits; Z90.89 Acquired absence of other organs; Z90.710 Acquired absence of both cervix and uterus; W05.1XXA Fall from non-moving nonmotorized scooter, initial encounter; Y93.89 Activity, other specified; Y92.009 Unspecified place in unspecified non-institutional (private) residence as the place of occurrence of the external cause; Y99.8 Other external cause status
CPT/HCPCS: 70450; 70486; 99284

== ENCOUNTER 2019-03-03 12:40 | Emergency (ER) | payer MEDICARE, MEDICAID ==
[~2019-03-03] VITALS: Ht 152.4 cm; Wt 75.0 kg
[2019-03-03 12:46] VITALS: BP 125/87
[2019-03-03] MEDS ORDERED: OXYcodone/APAP 5/325MG TABLET PO ONE (13:00)
[2019-03-03] MEDS ORDERED: OXYcodone/APAP 5/325MG TABLET ONE (13:05)
--- NOTE | 2019-03-03 13:06 | NUR ---
53 Y/O FEMALE PRESENTS TO ED WITH C/O GLF. "I WAS ON MY COUCH AND REACHING FOR MY SCOOTER AND I FELL. MY ANKLE HURTS." NO ACUTE DISTRESS NOTED. PT TEARFUL.
--- NOTE | 2019-03-03 14:33 | NUR ---
Patient/Caregiver given discharge instructions and they have confirmed that they understand the instructions. Patient LEFT IN SCOOTER. PT ABLE TO TRANSFER HERSELF TO SCOOTER. PT LEFT WITH ALL PERSONAL BELONGINGS.
== END 2019-03-03 14:35 | disposition home or self-care (01) ==
LOC: ED 14:15
DX: S93.492A Sprain of other ligament of left ankle, initial encounter (principal); F31.9 Bipolar disorder, unspecified; Z86.73 Personal history of transient ischemic attack (TIA), and cerebral infarction without residual deficits; Z90.89 Acquired absence of other organs; Z90.710 Acquired absence of both cervix and uterus; Z88.5 Allergy status to narcotic agent; Z88.6 Allergy status to analgesic agent; W18.30XA Fall on same level, unspecified, initial encounter; Y93.89 Activity, other specified; Y92.009 Unspecified place in unspecified non-institutional (private) residence as the place of occurrence of the external cause; Y99.8 Other external cause status
CPT/HCPCS: 99283

== ENCOUNTER 2019-07-06 09:49 | Outpatient (CLI) | payer MEDICARE, MEDICAID ==
[~2019-07-06 09:49] MED LIST changes: -ALPR-475 PO; +ALPR0.5T7 PO; +HYDR-826 PO; -HYDR25TA11 PO; +MORP-30 PO; -MORP30TA3 PO; -OMEP10CA4 PO; +OMEP10CA5 PO; -TOPI15CA PO; +TOPI15CA10 PO
[2019-07-06 10:18] LABS: ALANINE AMINOTRANSFERASE 35 U/L (12-78); ALBUMIN 3.2 g/dL (3.4-5.0); ANION GAP 13 mmol/L (5-15); CHLORIDE 106 mmol/L (98-107); CREATININE 1.33 mg/dL (0.55-1.02)
[2019-07-06 10:20] LABS: ALKALINE PHOSPHATASE 213 U/L (45-117); BILIRUBIN,TOTAL 0.5 mg/dL (0.2-1.0); TOTAL PROTEIN 7.2 g/dL (6.4-8.2)
[2019-07-06 10:26] LABS: BASOPHILS # (AUTO) 0.01 x10^3/uL (0-0.1); BASOPHILS % (AUTO) 0 % (0-1); EOSINOPHILS % (AUTO) 2 % (1-7); LYMPHOCYTES % (AUTO) 14 % (22-44); MD SCAN; MEAN CORPUSCULAR HEMOGLOBIN 31.5 pg (27.0-34.8); MEAN CORPUSCULAR VOLUME 95.6 fL (80-100); MEAN PLATELET VOLUME 12.6 fL (7.4-10.4); MONOCYTES # (AUTO) 0.56 x10^3/uL (0.2-0.8); MONOCYTES % (AUTO) 9 % (2-9); NEUTROPHILS # (AUTO) 4.45 x10^3/uL (1.8-6.8); NEUTROPHILS % (AUTO) 75 % (42-75); PLATELET COUNT 137 x10^3/uL (130-400); RED BLOOD COUNT 3.98 x10^6/uL (3.82-5.3); RED CELL DISTRIBUTION WIDTH 12.9 % (9.6-15.2)
== END 2019-07-06 23:59 | disposition home or self-care (01) ==
LOC: LAB 09:49
PROVIDERS: ATTEND Internal Medicine
DX: E78.5 Hyperlipidemia, unspecified (principal); R52 Pain, unspecified
CPT/HCPCS: 36415; 80053; 85025

== ENCOUNTER 2019-09-22 16:48 | Emergency (ER) | payer MEDICARE ==
[~2019-09-22] VITALS: Ht 152.4 cm; Wt 70.9 kg
--- NOTE | 2019-09-22 17:52 | NUR ---
PT HAS HAD A COUGH AND SINUS CONGESTION FOR 2 DAYS. PT INJURED RIGHT FOOT AND KNEE 2.5 WEEKS AGO AND HAS BEEN TAKING IBUPROFEN WITH PAIN REMAINING IN FOOT. PT STATES SHE BELIEVES THAT IS WHAT IS CAUSING HER TO HAVE EPIGASTRIC PAIN.
[2019-09-22] MEDS ORDERED: KETOROLAC 30 MG/1 ML ONE (18:20)
[2019-09-22] MEDS ORDERED: MAALOX/HYOSCYAMINE/LIDOCAINE 45 ML BTL ONE (18:21)
[2019-09-22] MEDS ORDERED: MAALOX/HYOSCYAMINE/LIDOCAINE 45 ML BTL PO ONE (18:30)
[2019-09-22] MEDS ORDERED: KETOROLAC 30 MG/1 ML IM ONE (18:30)
--- NOTE | 2019-09-22 18:53 | NUR ---
PT STATES EPIGASTRIC PAIN AND CUELLAR AND FOOT PAIN IMPROVED SINCE MEDICATED NOTED ON DEC. REPORT TO KALIA HUMPHRIES
--- NOTE | 2019-09-22 18:55 | NUR ---
REPORT FROM KRISTEL CHAVEZ. ASSUMED CARE OF PT. NO NEEDS AT THIS TIME.
[2019-09-22 19:05] VITALS: BP 120/71
[2019-10-08] MEDS ORDERED: LEVO100T PO (16:09)
[2019-10-08] MEDS ORDERED: PREG150C PO (16:09)
[2019-10-08] MEDS ORDERED: TAMS-11 PO (16:09)
[2019-10-08] MEDS ORDERED: LACT20SO13 PO (16:21)
[2019-10-08] MEDS ORDERED: POTA10CA PO (16:21)
== END 2019-09-22 19:08 | disposition home or self-care (01) ==
LOC: ED 19:02
DX: J06.9 Acute upper respiratory infection, unspecified (principal); R10.9 Unspecified abdominal pain; I25.2 Old myocardial infarction; Z86.73 Personal history of transient ischemic attack (TIA), and cerebral infarction without residual deficits; Z90.49 Acquired absence of other specified parts of digestive tract; Z90.710 Acquired absence of both cervix and uterus
CPT/HCPCS: 71045; 93005; 96372; 99283; J1885

== ENCOUNTER 2019-09-24 06:25 | Emergency (ER) | payer MEDICARE ==
[~2019-09-24] VITALS: Ht 152.4 cm; Wt 76.0 kg
--- NOTE | 2019-09-24 06:51 | NUR ---
RECEIVED BEDSIDE REPORT FROM KRISTEL EASTON. PT UNPLUGGED FROM MONITORS TO USE RESTROOM.
--- NOTE | 2019-09-24 07:04 | NUR ---
PT TO RESTROOM WITH HER SCOOTER. PT REATTACHED TO ALL MONITORS. PLUGGED IN PT'S SCOOTER FOR HER. DANG. NO NEEDS REQUESTED AT THIS TIME.
[2019-09-24 07:05] VITALS: BP 105/59
[2019-09-24] MEDS ORDERED: ASPIRIN 81 MG TABLET CHEW ONE (07:10)
--- NOTE | 2019-09-24 07:11 | NUR ---
PT STATES "I ONLY HAVE CHEST PAIN AFTER I COUGH. SO THE CHEST PAIN IS FROM COUGHING."
[2019-09-24] MEDS ORDERED: ASPIRIN 81 MG TABLET CHEW PO ONE (07:30)
[2019-09-24 07:42] LABS: MEAN CORPUSCULAR HEMOGLOBIN 30.5 pg (27.0-34.8); MEAN CORPUSCULAR HGB CONC 32.3 g/dL (32.4-35.8); MEAN CORPUSCULAR VOLUME 94.5 fL (80-100); RED BLOOD COUNT 3.15 x10^6/uL (3.82-5.3); RED CELL DISTRIBUTION WIDTH 14.4 % (9.6-15.2)
[2019-09-24 07:45] LABS: ALANINE AMINOTRANSFERASE 84 U/L (12-78); ALBUMIN 2.2 g/dL (3.4-5.0); ANION GAP 11 mmol/L (5-15); CHLORIDE 118 mmol/L (98-107); CREATININE 0.76 mg/dL (0.55-1.02)
[2019-09-24 07:56] LABS: ALKALINE PHOSPHATASE 209 U/L (45-117); BILIRUBIN,TOTAL 0.4 mg/dL (0.2-1.0); TROPONIN I < 0.015 ng/mL (0.000-0.045)
[2019-09-24] MEDS ORDERED: BENZONATATE 100 MG CAPSULE PO ONE (08:00)
[2019-09-24 08:02] LABS: MD YES; MEAN PLATELET VOLUME 12.2 fL (7.4-10.4); PLATELET COUNT 211 x10^3/uL (130-400)
[2019-09-24 08:05] LABS: <PLATELET ESTIMATE> ADEQUATE; <PLT MORPHOLOGY> NORMAL PLT MORPH; ANISOCYTOSIS 1+; BAND#(MANUAL) 0.04 x10^3/uL; BANDS%(MANUAL) 1 % (0-7); EOS#(MANUAL) 0.17 x10^3/uL (0.0-0.4); EOS% (MANUAL) 4 % (1-7); LYMPH#(MANUAL) 0.97 x10^3/uL (1-3.4); LYMPHS% (MANUAL) 23 % (22-44); MONOS#(MANUAL) 0.21 x10^3/uL (0.3-2.7); MONOS% (MANUAL) 5 % (2-9); SEG#(MANUAL) 2.81 x10^3/uL (1.8-6.8); SEGS% (MANUAL) 67 % (42-75)
--- NOTE | 2019-09-24 08:13 | NUR ---
PT EDUCATED REGARDING D/C INFORMATION. PT STATES "MY INSURANCE COVERS THAT ANTIBIOTIC SHE PRESCRIBED" PT CHANGING.
--- NOTE | 2019-09-24 08:24 | NUR ---
Patient/Caregiver given discharge instructions and they have confirmed that they understand the instructions. Patient ABLE TO TRANSFER HERSELF TO HER SCOOTER. PT LEFT WITH ALL PERSONAL BELONGINGS.
== END 2019-09-24 08:25 | disposition home or self-care (01) ==
LOC: ED 08:24
DX: J06.9 Acute upper respiratory infection, unspecified (principal); B34.9 Viral infection, unspecified; I25.2 Old myocardial infarction; Z72.89 Other problems related to lifestyle; Z90.89 Acquired absence of other organs; Z90.710 Acquired absence of both cervix and uterus; Z86.73 Personal history of transient ischemic attack (TIA), and cerebral infarction without residual deficits
CPT/HCPCS: 36415; 71045; 80053; 84484; 85025; 93005; 99284

== ENCOUNTER 2019-09-26 19:14 | Emergency (ER) | payer MEDICARE ==
[~2019-09-26] VITALS: Ht 152.4 cm; Wt 70.0 kg
--- NOTE | 2019-09-26 19:52 | NUR ---
pt to ED from custodial, mult comlpaints. cold sx since 09/17, worse today, c/o SOB and coughing. "I'm coughing up blood and i vomit". c/o chest pain. c/o constipation, no bm x13 days. c/o abd pain. also c/o rash to perineum x1 weak, "it's oozing brown stuff and it smells bad". A&Ox4 GCS 15. voice hoarse. PA at bedside for eval. plan for labs/cxr/meds. call laguna in reach.
[2019-09-26] MEDS ORDERED: BENZONATATE 100 MG CAPSULE PO ONE (20:00)
[2019-09-26] MEDS ORDERED: BENZONATATE 100 MG CAPSULE ONE (20:03)
--- NOTE | 2019-09-26 20:22 | NUR ---
CT: large amts stool no obstruction.
[2019-09-26] MEDS ORDERED: NYSTATIN/TRIAMCINOLONE OINT 15GM TP ONE (20:30)
[2019-09-26 20:35] LABS: ALANINE AMINOTRANSFERASE 68 U/L (12-78); ALBUMIN 2.1 g/dL (3.4-5.0); ANION GAP 12 mmol/L (5-15); CALCIUM 8.1 mg/dL (8.5-10.1); CHLORIDE 112 mmol/L (98-107); CREATININE 1.45 mg/dL (0.55-1.02)
[2019-09-26 20:38] LABS: ALKALINE PHOSPHATASE 223 U/L (45-117); BILIRUBIN,TOTAL 0.4 mg/dL (0.2-1.0); TOTAL PROTEIN 6.2 g/dL (6.4-8.2)
[2019-09-26] MEDS ORDERED: POTASSIUM CHLORIDE 20 MEQ TAB.ER.PRT ONE (20:44)
--- NOTE | 2019-09-26 20:47 | NUR ---
K 2.7, Ana DOYLE made aware, ekg in progress, KDUR per dec. nystatin req from pharm.
[2019-09-26 20:55] LABS: MEAN CORPUSCULAR HEMOGLOBIN 30.4 pg (27.0-34.8); MEAN CORPUSCULAR HGB CONC 31.8 g/dL (32.4-35.8); MEAN CORPUSCULAR VOLUME 95.5 fL (80-100); MEAN PLATELET VOLUME 12.5 fL (7.4-10.4); PLATELET COUNT 286 x10^3/uL (130-400); RED BLOOD COUNT 3.29 x10^6/uL (3.82-5.3); RED CELL DISTRIBUTION WIDTH 14.3 % (9.6-15.2)
[2019-09-26 20:57] LABS: MD YES
[2019-09-26 20:58] LABS: EOS#(MANUAL) 0.12 x10^3/uL (0.0-0.4); EOS% (MANUAL) 2 % (1-7); LYMPH#(MANUAL) 2.04 x10^3/uL (1-3.4); LYMPHS% (MANUAL) 34 % (22-44); MONOS#(MANUAL) 0.78 x10^3/uL (0.3-2.7); MONOS% (MANUAL) 13 % (2-9); SEG#(MANUAL) 3.06 x10^3/uL (1.8-6.8); SEGS% (MANUAL) 51 % (42-75)
[2019-09-26 20:59] LABS: <PLATELET ESTIMATE> ADEQUATE; GIANT PLATELETS 1+
[2019-09-26 21:00] LABS: <RBC MORPHOLOGY> NORMAL
[2019-09-26] MEDS ORDERED: NYSTATIN/TRIAMCINOLONE CRM 15GM TP ONE (21:00)
[2019-09-26] MEDS ORDERED: POTASSIUM CHLORIDE 20 MEQ TAB.ER.PRT PO ONE (21:00)
--- NOTE | 2019-09-26 21:00 | NUR ---
received report from KRISTEL Maddox.
--- NOTE | 2019-09-26 21:03 | NUR ---
report to melly haskins.
[2019-09-26] MEDS ORDERED: POLYETHYLENE GLYCOL 17 GM PACKET NG ONE (22:00)
--- NOTE | 2019-09-26 22:07 | NUR ---
attempted to discharge patient. states if she can have 1 dose of miralax before discharge. PA aware. order made.
--- NOTE | 2019-09-26 23:00 | NUR ---
patient medicated. dressing up at this time.
--- NOTE | 2019-09-26 23:31 | NUR ---
patient discharged with prescriptions and instruction. verbalized understanding.
[2019-09-26 23:32] VITALS: BP 123/76
== END 2019-09-26 23:35 | disposition home or self-care (01) ==
LOC: ED 19:41
DX: R10.13 Epigastric pain (principal); R05 Cough; R21 Rash and other nonspecific skin eruption; E87.6 Hypokalemia; Z86.73 Personal history of transient ischemic attack (TIA), and cerebral infarction without residual deficits; I25.2 Old myocardial infarction
CPT/HCPCS: 36415; 74021; 80053; 83690; 85025; 93005; 96372; 99284

== ENCOUNTER 2019-09-30 10:20 | Emergency (ER) | payer MEDICARE ==
[~2019-09-30] VITALS: Ht 157.5 cm; Wt 75.0 kg
--- NOTE | 2019-09-30 10:54 | NUR ---
FIRST CONTACT WITH PT. PT C/O CP AND BACK PAIN X 4 DAYS WITH N/V. PT'S AOX4. RESPS EVEN AND UNLABORED. ALL MONITORS IN PLACE. CALL LIGHT WITHIN REACH. NSR ON CERTIFIED NURSE PRACTITIONER AT THIS TIME. EKG DONE AT BEDSIDE BY EMT. MD AT BEDSIDE TO EVALUATE.
[2019-09-30 12:25] VITALS: BP 100/53
--- NOTE | 2019-09-30 12:50 | NUR ---
PIV EST BY CHANTE HUMPHRIES FOR CTA. PT'S AOX4. RESPS EVEN AND UNLABORED. ALL MONITORS IN PLACE. CALL LIGHT WITHIN REACH.
[2019-09-30 12:59] LABS: ALANINE AMINOTRANSFERASE 47 U/L (12-78); ALBUMIN 1.8 g/dL (3.4-5.0); ANION GAP 10 mmol/L (5-15); CALCIUM 7.9 mg/dL (8.5-10.1); CHLORIDE 115 mmol/L (98-107); CREATININE 1.04 mg/dL (0.55-1.02)
[2019-09-30 13:03] LABS: ALKALINE PHOSPHATASE 158 U/L (45-117); BILIRUBIN,TOTAL 0.6 mg/dL (0.2-1.0); TROPONIN I < 0.015 ng/mL (0.000-0.045)
--- NOTE | 2019-09-30 13:44 | NUR ---
lab called and will be re-drawing pt
--- NOTE | 2019-09-30 14:02 | NUR ---
pt states"i wanna go now." notified. this rn and md discussed with pt. pt signed mega iam.
== END 2019-09-30 14:24 | disposition left against medical advice (07) ==
LOC: ED 11:02
DX: J20.8 Acute bronchitis due to other specified organisms (principal); B97.89 Other viral agents as the cause of diseases classified elsewhere; I25.10 Atherosclerotic heart disease of native coronary artery without angina pectoris
CPT/HCPCS: 36415; 71045; 80053; 84484; 93005; 99284

== ENCOUNTER 2020-01-08 11:04 | Emergency (ER) | payer MEDICARE ==
[~2020-01-08] VITALS: Ht 152.4 cm; Wt 68.0 kg
[~2020-01-08 11:04] MED LIST changes: +FLUO10CA14 PO; -FLUO10CA7 PO; +LACT20SO13 PO; +LEVO100T PO; +TAMS-11 PO
[2020-01-08 11:20] VITALS: BP 129/84
--- NOTE | 2020-01-08 11:24 | NUR ---
[facility]. INTENDS TO OD WITH ETOH/BENEDRYL/HALDOL. PT STATES SHE IS HOMELESS AND FEELS HELPLESS, SHE HAS HAD A HX OF SA/SI PER HER REPORT. PT TO SECURE RM AT THIS TIME, BELONGINGS REMOVED AND PLACED IN LOCKER.
[2020-01-08 11:49] LABS: ALBUMIN 3.1 g/dL (3.4-5.0); ANION GAP 10 mmol/L (5-15); CHLORIDE 115 mmol/L (98-107); CREATININE 0.84 mg/dL (0.55-1.02)
[2020-01-08 11:51] LABS: MEAN CORPUSCULAR HEMOGLOBIN 29.3 pg (27.0-34.8); MEAN CORPUSCULAR HGB CONC 32.7 g/dL (32.4-35.8); MEAN CORPUSCULAR VOLUME 89.4 fL (80-100); MEAN PLATELET VOLUME 11.8 fL (7.4-10.4); PLATELET COUNT 231 x10^3/uL (130-400); RED CELL DISTRIBUTION WIDTH 16.4 % (9.6-15.2)
[2020-01-08 11:55] LABS: SALICYLATE LEVEL < 1.7 mg/dL (2.8-20.0)
[2020-01-08 12:26] LABS: BASOPHILS # (AUTO) 0.02 x10^3/uL (0-0.1); BASOPHILS % (AUTO) 0 % (0-1); EOSINOPHILS # (AUTO) 0.02 x10^3/uL (0-0.4); EOSINOPHILS % (AUTO) 0 % (1-7); LYMPHOCYTES # (AUTO) 0.97 x10^3/uL (1-3.4); LYMPHOCYTES % (AUTO) 17 % (22-44); MD SCAN; MONOCYTES % (AUTO) 5 % (2-9); NEUTROPHILS # (AUTO) 4.32 x10^3/uL (1.8-6.8); NEUTROPHILS % (AUTO) 77 % (42-75)
--- NOTE | 2020-01-08 12:58 | NUR ---
requested records from [facility].
[2020-01-08] MEDS ORDERED: SODIUM CHLORIDE 0.9% 1,000ML IVBOLUS ONE (13:30)
--- NOTE | 2020-01-08 13:34 | NUR ---
Report recieved from Penny HUMPHRIES. Pt assisted up to rr via wc. Urine collected, sent to lab. Head CT completed, awaiitng results. IV started per orders, IVF running. Sitter remains at bedside. Cont to monitor.
[2020-01-08 13:53] LABS: AMPHETAMINE SCREEN, URINE Negative (Negative); BARBITURATE SCREEN, URINE Negative (Negative); BENZODIAZEPINE SCREEN, URINE Negative (Negative); CANNABINOID SCREEN, URINE Negative (Negative); COCAINE SCREEN, URINE Negative (Negative); METHADONE SCREEN, URINE Negative (Negative); OPIATE SCREEN, URINE Negative (Negative)
--- NOTE | 2020-01-08 13:53 | NUR ---
2nd request for medical records from [facility].
--- NOTE | 2020-01-08 14:50 | NUR ---
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
--- NOTE | 2020-01-08 15:25 | NUR ---
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 Pt currently denies any SI/SA thoughts. States "she is feeling better." Will D/C per orders.
== END 2020-01-08 15:32 | disposition home or self-care (01) ==
LOC: ED 11:45
DX: R45.851 Suicidal ideations (principal); T14.8XXA Other injury of unspecified body region, initial encounter; F32.9 Major depressive disorder, single episode, unspecified; E86.0 Dehydration; F10.10 Alcohol abuse, uncomplicated; E87.6 Hypokalemia; R41.3 Other amnesia; I25.2 Old myocardial infarction; I25.10 Atherosclerotic heart disease of native coronary artery without angina pectoris; Z86.73 Personal history of transient ischemic attack (TIA), and cerebral infarction without residual deficits; Z90.89 Acquired absence of other organs; Z90.710 Acquired absence of both cervix and uterus; X58.XXXA Exposure to other specified factors, initial encounter; Y93.89 Activity, other specified; Y92.89 Other specified places as the place of occurrence of the external cause; Y99.8 Other external cause status; Y90.0 Blood alcohol level of less than 20 mg/100 ml
CPT/HCPCS: 36415; 70450; 80048; 80307; 82040; 85025; 96360; 99284; J7030